=== PATIENT | male | born 1975 | race Caucasian/White ===

== ENCOUNTER → 2017-04-14 | Day surgery (SDC) | payer OTHER ==
[~2017-04-14] MED LIST: BUPIVACAINE/EPINEPHRINE 0.25% 50 ML VIAL ONE; KETOROLAC TROMETHAMINE 30 MG/ML (IVP) VIAL IV PUSH ONE; LACTATED RINGER'S 1000 ML INJ 1,000 ML ONE; MIDAZOLAM HCL 2 MG/2 ML VIAL ONE; ONDANSETRON HCL 4 MG/2 ML VIAL IV PUSH ONE; PROPOFOL 200 MG/20 ML AMP IV ONE; ceFAZolin INJ 1,000 MG VIAL ONE
--- NOTE | 2017-04-14 20:06 | MP ---
cc: CHUN BUTCHER DATE OF SURGERY 04/14/2017 PREOPERATIVE DIAGNOSIS Right knee medial meniscus tear. POSTOPERATIVE DIAGNOSES Right knee medial meniscus tear. PROCEDURE Right knee arthroscopic partial medial meniscectomy. SURGEON Dr. Chun Butcher ANESTHESIA General. ESTIMATED BLOOD LOSS Less than 10 cc. TOURNIQUET TIME Zero minutes. JUSTIFICATION This is a 42-year male who injured the right knee, he has had persistence of pain in regards his condition, failed conservative treatment. Clinical exam as well as MRI confirmed the above-named findings. The patient was counseled as to the risks, benefits and alternatives to the named findings. He did wish to proceed with surgery. A written consent was obtained. DETAILS OF THE PROCEDURE The patient identified by name, taken to the operating room, placed supine on the table. General anesthesia was administered as well as 1 gram of IV Ancef. The right thigh was carefully placed in well-padded leg isbell. The right lower extremity prepped and draped using isopropyl alcohol, Hibiclens solution, DuraPrep solution. After a time-out performed a standard medial and lateral parapatellar arthroscope portal was established at the patellofemoral joint. 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 Arthrex shaver was then introduced to perform a chondroplasty in this region and debridement of any unstable cartilage fragmentation. Attention was turned to medial compartment where there was a very large complex tear of the midbody, posterior horn medial meniscus. An arthroscopic shaver was introduced into the medial compartment to perform a partial medial meniscectomy. The meniscal rim was probed and noted to be stable. There was evidence of grade 2 and even some grade 3 chondromalacia changes of the medial femoral condyle. A chondroplasty medial femoral condyle was also performed to a smooth articular base. The intercondylar notch revealed the anterior and posterior cruciate ligaments to be intact, lateral compartment was free of meniscal pathology and chondromalacia. At the conclusion of the surgical procedure 30 cc of 0.5% Marcaine with epinephrine was injected into the knee joint. The arthroscopic portals were closed with 3-0 Prolene suture. Sterile dressing applied. The patient tolerated the procedure well with no intraoperative complications noted. MD MASHA Carpio/BHAVIK /10:09 AM /7:48 PM
== END | disposition home or self-care (01) ==
LOC: ESDC 08:04
PROVIDERS: ATTEND Orthopaedic Surgery Sports Medicine
DX: S83.231A Complex tear of medial meniscus, current injury, right knee, initial encounter (principal)
CPT/HCPCS: 01400; 29881; J0690; J1885; J2250; J2405; J3010; J7120